=== PATIENT | female | born 2000 | race Caucasian/White ===

== ENCOUNTER 2020-05-08 09:11 | Emergency (ER) | payer OTHER ==
[~2020-05-08 09:11] MED LIST: PRENATAL FORMU1 EACH PO; ZOFRAN4 MG PO
[2020-05-08] MEDS ORDERED: MEDROL 4MG DOSEP4 MG PO (12:13)
== END 2020-05-08 12:24 | disposition home or self-care (01) ==
LOC: FER 09:11
DX: L50.1 Idiopathic urticaria (principal); F17.210 Nicotine dependence, cigarettes, uncomplicated; Z88.4 Allergy status to anesthetic agent
CPT/HCPCS: 96372; J1200; J2930

== ENCOUNTER 2021-11-09 07:57 | Emergency (ER) | payer OTHER ==
[~2021-11-09 07:57] MED LIST changes: +MEDROL 4MG DOSEP4 MG PO
[2021-11-09 09:09] LABS: BASOPHIL 0.5 % (0-2); EOSINOPHIL 3.5 % (0-5); HCT 41.9 % (37.0-47.0); LYMPHOCYTE 32.2 % (15-48); MCH 29.7 pg (25.0-31.0); MCHC 33.4 g/dL (32.0-36.0); MCV 88.8 fL (78.0-100.0); MONOCYTE 6.1 % (0-12); MPV 9.2 fL (6.0-9.5); NEUTROPHIL 57.4 % (41-80); NRBC 0; PLT 226 K/uL (150-400); RBC 4.72 M/uL (4.20-5.40); RDW 12.5 % (11.5-14.0); WBC 6.3 K/uL (4.0-10.5)
[2021-11-09 09:22] LABS: BUN/CREAT RATIO (CALC) 10.7 RATIO; CREATININE 0.56 mg/dL (0.51-0.95); POTASSIUM 3.2 mmol/L (3.5-5.1)
== END 2021-11-09 10:13 | disposition home or self-care (01) ==
LOC: FER 07:57
PROVIDERS: Emergency Medicine
DX: O20.0 Threatened abortion (principal); O99.331 Smoking (tobacco) complicating pregnancy, first trimester; F17.200 Nicotine dependence, unspecified, uncomplicated; Z28.310 Unvaccinated for COVID-19
CPT/HCPCS: 36415; 80048; 84702; 85025; 86850; 86900; 86901; 99284

== ENCOUNTER 2021-12-22 23:37 | Emergency (ER) | payer OTHER ==
[2021-12-23 04:06] LABS: BASOPHIL 0.5 % (0-2); EOSINOPHIL 1.9 % (0-5); HCT 48.7 % (37.0-47.0); HGB 16.3 g/dl (12.5-16.0); LYMPHOCYTE 30.4 % (15-48); MCH 29.5 pg (25.0-31.0); MCHC 33.5 g/dL (32.0-36.0); MCV 88.2 fL (78.0-100.0); MONOCYTE 5.9 % (0-12); MPV 9.4 fL (6.0-9.5); NRBC 0; PLT 302 K/uL (150-400); RBC 5.52 M/uL (4.20-5.40); RDW 12.6 % (11.5-14.0); WBC 8.8 K/uL (4.0-10.5)
[2021-12-23 04:15] LABS: BILIRUBIN 1+ mg/dL (NEGATIVE); BLOOD NEGATIVE Ery/uL (NEGATIVE); CLARITY CLEAR (CLEAR); COLOR YELLOW (YELLOW); GLUCOSE (U) NORMAL (NORMAL); LEUKOCYTES NEGATIVE Leu/uL (NEGATIVE); NITRITE NEGATIVE (NEGATIVE); PROTEIN NEGATIVE (NEGATIVE); SPECIFIC GRAVITY 1.025 (1.001-1.030); UROBILINOGEN 0.2 mg/dL (0.2-1.0)
[2021-12-23 04:27] LABS: ALBUMIN 4.8 g/dL (3.4-5.0); BILIRUBIN - TOTAL 0.6 mg/dL (0.2-1.0); BUN/CREAT RATIO (CALC) 9.6 RATIO; CREATININE 0.52 mg/dL (0.51-0.95); GLOBULIN (CALCULATION) 3.4 g/dL; POTASSIUM 3.3 mmol/L (3.5-5.1); TOTAL PROTEIN 8.2 g/dL (6.4-8.2)
== END 2021-12-23 06:00 | disposition home or self-care (01) ==
LOC: FER 23:37
PROVIDERS: Emergency Medicine
DX: O21.9 Vomiting of pregnancy, unspecified (principal); Z3A.01 Less than 8 weeks gestation of pregnancy; Z28.310 Unvaccinated for COVID-19; Z87.891 Personal history of nicotine dependence
CPT/HCPCS: 36415; 80053; 81003; 84702; 84703; 85025; J2405; J7030

== ENCOUNTER 2022-01-04 11:59 | Emergency (ER) | payer OTHER ==
[2022-01-04 13:02] LABS: BASOPHIL 0.3 % (0-2); BILIRUBIN NEGATIVE (NEGATIVE); BLOOD 2+ Ery/uL (NEGATIVE); CLARITY CLEAR (CLEAR); COLOR YELLOW (YELLOW); EOSINOPHIL 3.9 % (0-5); GLUCOSE (U) NORMAL (NORMAL); HCT 40.3 % (37.0-47.0); HGB 13.5 g/dl (12.5-16.0); LEUKOCYTES TRACE Leu/uL (NEGATIVE); LYMPHOCYTE 28.8 % (15-48); MCH 29.7 pg (25.0-31.0); MCHC 33.5 g/dL (32.0-36.0); MCV 88.6 fL (78.0-100.0); MONOCYTE 5.7 % (0-12); MPV 9.4 fL (6.0-9.5); NITRITE NEGATIVE (NEGATIVE); NRBC 0; PLT 204 K/uL (150-400); PROTEIN NEGATIVE (NEGATIVE); RBC 4.55 M/uL (4.20-5.40); RDW 12.4 % (11.5-14.0); UROBILINOGEN 0.2 mg/dL (0.2-1.0); WBC 6.7 K/uL (4.0-10.5); pH 6.5 (5.0-9.0)
[2022-01-04 13:20] LABS: ALBUMIN 3.9 g/dL (3.4-5.0); BILIRUBIN - TOTAL 0.5 mg/dL (0.2-1.0); BUN/CREAT RATIO (CALC) 7.8 RATIO; CREATININE 0.51 mg/dL (0.51-0.95); GLOBULIN (CALCULATION) 2.8 g/dL; POTASSIUM 3.5 mmol/L (3.5-5.1); TOTAL PROTEIN 6.7 g/dL (6.4-8.2)
[2022-01-04 13:28] LABS: BACTERIA TRACE; MUCOUS LARGE
== END 2022-01-04 16:39 | disposition home or self-care (01) ==
LOC: FER 11:59
PROVIDERS: Physician Assistant
DX: O20.9 Hemorrhage in early pregnancy, unspecified (principal); O99.331 Smoking (tobacco) complicating pregnancy, first trimester; F17.210 Nicotine dependence, cigarettes, uncomplicated; Z3A.01 Less than 8 weeks gestation of pregnancy; Z28.310 Unvaccinated for COVID-19
CPT/HCPCS: 36415; 76817; 80053; 81001; 84702; 85025